=== PATIENT | female | born 1990 | race Caucasian/White ===

== ENCOUNTER 2021-03-10 10:29 | Emergency (ER) | payer SELFPAY ==
[~2021-03-10] VITALS: Ht 162.6 cm; Wt 60.0 kg
[2021-03-10] MEDS ORDERED: ONDANSETRON ODT 4 MG PO ONE (11:00)
[2021-03-10] MEDS ORDERED: ONDANSETRON ODT 4 MG ONE (11:03)
--- NOTE | 2021-03-10 11:07 | NUR ---
PT CAME IN CO NVD THAT STARTED AROUND 0530 THIS MORNING. PT VOMITTING IN TRIAGE. ADMITS TO MARIJUANA USE DAILY. PT MEDICATED PER OCT. RESTING IN [facility]
[2021-03-10 11:16] LABS: BASOPHILS % (AUTO) 0 % (0-1); EOSINOPHILS % (AUTO) 0 % (1-7); LYMPHOCYTES % (AUTO) 11 % (22-44); MEAN CORPUSCULAR HEMOGLOBIN 31.2 pg (27.0-34.8); MEAN CORPUSCULAR HGB CONC 34.1 g/dL (32.4-35.8); MEAN PLATELET VOLUME 8.8 fL (7.4-10.4); MONOCYTES % (AUTO) 3 % (2-9); NEUTROPHILS % (AUTO) 86 % (42-75); PLATELET COUNT 317 x10^3/uL (130-400); RED CELL DISTRIBUTION WIDTH 12.4 % (9.6-15.2)
[2021-03-10 11:26] LABS: ALANINE AMINOTRANSFERASE 29 U/L (12-78); ANION GAP 9 mmol/L (5-15); CALCIUM 9.1 mg/dL (8.5-10.1); CHLORIDE 110 mmol/L (98-107); CREATININE 0.76 mg/dL (0.55-1.02)
[2021-03-10 11:30] LABS: ALKALINE PHOSPHATASE 63 U/L (45-117); TOTAL PROTEIN 8.1 g/dL (6.4-8.2)
--- NOTE | 2021-03-10 11:48 | NUR ---
PT RESTING IN GURNEY. EYES CLOSED. EQUAL CHEST AND FALL WITH EACH BREATH. BOYFRIEND BEDSIDE
[2021-03-10] MEDS ORDERED: METOCLOPRAMIDE 5 MG/ML, 2ML ONE (12:02)
--- NOTE | 2021-03-10 12:17 | NUR ---
IV STARTED. FLUIDS INFUSING. MEDICATED PER MAR
[2021-03-10] MEDS ORDERED: SODIUM CHLORIDE FLUSH 10ML SYR IVF ONE (12:30)
[2021-03-10] MEDS ORDERED: SODIUM CHLORIDE 0.9% 1,000ML IVBOLUS ONE (12:30)
[2021-03-10] MEDS ORDERED: METOCLOPRAMIDE 5 MG/ML, 2ML IVPush ONE (12:30)
[2021-03-10 12:53] VITALS: BP 124/67
[2021-03-10 13:57] LABS: MICROSCOPIC INDICATED
== END 2021-03-10 14:59 | disposition home or self-care (01) ==
LOC: ED 11:12
DX: E86.0 Dehydration (principal); R11.2 Nausea with vomiting, unspecified; B33.8 Other specified viral diseases; J45.909 Unspecified asthma, uncomplicated
CPT/HCPCS: 36415; 80053; 81001; 83690; 84703; 85025; 96361; 96374; 99283; J2765; J7030; Q0162